=== PATIENT | female | born 1995 | race Caucasian/White ===

== ENCOUNTER 2021-09-16 17:24 | Emergency (ER) | payer SELFPAY ==
[2021-09-16 17:33] VITALS: BP 120/81; PULSE 102; RESP 18; TEMP 37.1; O2SAT 99
--- NOTE | 2021-09-16 17:58 | ED.UPPEXIN ---
HPI - Extremity Injury (Upper) General Chief Complaint: Extremity Injury, Upper Stated Complaint: lt thumb inj History of Present Illness HPI narrative: Patient eloped therefore, unable to obtain HPI, ROS, and exam Course Course Level of Care: Express Care Visit Vital Signs Vital signs: Vital Signs Temperature 98.8 F 09/16/21 17:33 Pulse Rate 102 H 09/16/21 17:33 Respiratory Rate 18 09/16/21 17:33 Blood Pressure 120/81 09/16/21 17:33 Pulse Oximetry 99 09/16/21 17:33 Temperature 98.8 F 09/16/21 17:33 Pulse Rate 102 H 09/16/21 17:33 Respiratory Rate 18 09/16/21 17:33 Blood Pressure 120/81 09/16/21 17:33 Pulse Oximetry 99 09/16/21 17:33 Discharge Plan Discharge Patient Disposition: Left Without Being Seen Follow-up/Referrals: PHYSICIAN,PHYSICAL MEDICINE SPECIALIST [Primary Care Provider] - Time of Disposition: 17:58
== END 2021-09-16 18:00 | disposition left against medical advice (07) ==
PROVIDERS: Emergency Provider Nurse Practitioner Family
DX: Z53.21 Procedure and treatment not carried out due to patient leaving prior to being seen by health care provider (principal)
CPT/HCPCS: 99199